=== PATIENT | male | born 1985 | race Caucasian/White ===

== ENCOUNTER 2018-05-11 11:23 | Emergency (ER) | payer SELFPAY ==
[~2018-05-11 11:23] MED LIST: CIPR500T4 PO; LEVO750T33 PO
[2018-05-11 11:25] VITALS: PULSE 79; RESP 20; TEMP 98.6; O2SAT 98
[2018-05-11 11:52] VITALS: O2SAT 97
--- NOTE | 2018-05-11 11:58 | PD ---
HPI Chief Complaint: General Weakness Time Seen by Provider: 11:35 Travel History International Travel<30 days: No Contact w/Intl Traveler<30days: No Traveled to known affect area: No History of Present Illness HPI 33-year-old male complains of pain and weakness anterior neck area, bilateral upper extremity. Patient states that symptoms started 2 days ago. Patient started having congestion 3 days ago. She states her congestion got better. Patient started having muscle pain tightness and weakness on the anterior neck area and bilateral upper extremity. Patient states that pain is worse with exertion. Patient states that he took ibuprofen and muscle relaxant yesterday without much relief. Patient states that he has been drinking a lot of water. Patient states that he was playing musical instrument out in the sun 3 days ago. Patient denies any headache. Patient denies any coughing. Patient denies any chest pain shortness of breath. Patient denies abdominal pain. Patient denies any nausea vomiting diarrhea. Patient is not on any routine medication. Patient denies any history of alcohol or drug abuse. On a scale of 1-10 the pain is a 5. PFSH Past Medical History Cardiovascular Problems: Yes ([facility]) Diminished Hearing: No Social History Alcohol Use: Yes ([facility]) Tobacco Use: Yes (1-2 PACKS/WEEK, NONE IN PAST 3 DAYS) Substance Use: No Allergies-Medications (Allergen,Severity, Reaction): Coded Allergies: amoxicillin (Verified Allergy, Intermediate, rash, 05/11/18) Reported Meds & Prescriptions Reported Meds & Active Scripts Active No Active Prescriptions or Reported Medications Review of Systems General / Constitutional: No: Fever Eyes: No: Visual changes HENT: No: Headaches Cardiovascular: No: Chest Pain or Discomfort Respiratory: No: Shortness of Breath Gastrointestinal: No: Abdominal Pain Genitourinary: No: Dysuria Musculoskeletal: Positive: Weakness, No: Pain Skin: No Rash Neurologic: No: Weakness Psychiatric: No: Depression Endocrine: No: Polydipsia Hematologic/Lymphatic: No: Easy Bruising Physical Exam Narrative GENERAL: Well-nourished, well-developed patient. SKIN: Focused skin assessment warm/dry. HEAD: Normocephalic. EYES: No scleral icterus. No injection or drainage. NECK: Supple, trachea midline. No JVD or lymphadenopathy. Mild tenderness on palpation anterior neck area. Trachea midline. No obvious mass noted. No lymphadenopathy. CARDIOVASCULAR: Regular rate and rhythm without murmurs, gallops, or rubs. RESPIRATORY: Breath sounds equal bilaterally. No accessory muscle use. GASTROINTESTINAL: Abdomen soft, non-tender, nondistended. MUSCULOSKELETAL: Patient has moderate diffuse tenderness over the bilateral upper extremities. Full range of motion upper extremity. 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 Patient states that the pain is aggravated by pain group and resistant movement of the upper extremity. Sensory function intact. No redness no heat noted. BACK: Nontender without obvious deformity. No CVA tenderness. Neurologic exam normal. Data Data Last Documented VS Vital Signs Date Time Temp Pulse Resp B/P (MAP) Pulse Ox O2 Delivery O2 Flow Rate FiO2 05/11/18 11:52 81 16 97 05/11/18 11:25 98.6 Orders Orders Electrocardiogram (05/11/18 11:41) Complete Blood Count With Diff (05/11/18 11:41) Comprehensive Metabolic Panel (05/11/18 11:41) Creatine Kinase (Cpk) (05/11/18 11:41) Urinalysis - C+S If Indicated (05/11/18 11:41) Chest, Single Ap (05/11/18 11:41) Iv Access Insert/Monitor (05/11/18 11:41) Ecg Monitoring (05/11/18 11:41) Oximetry (05/11/18 11:41) Drug Screen, Random Urine (05/11/18 11:41) Troponin I (05/11/18 11:41) Mri C Spine W/O Contrast (05/11/18 11:41) Thyroid Stimulating Hormone (05/11/18 11:41) Sodium Chlor 0.9% 1000 Ml Inj (Ns 1000 M (05/11/18 12:00) CKMB (05/11/18 12:10) CKMB% (05/11/18 12:10) Sodium Chlor 0.9% 1000 Ml Inj (Ns 1000 M (05/11/18 13:45) Labs Laboratory Tests Test 05/11/18 12:10 05/11/18 13:41 White Blood Count 5.9 TH/MM3 Red Blood Count 5.02 MIL/MM3 Hemoglobin 14.5 GM/DL Hematocrit 42.4 % Mean Corpuscular Volume 84.5 FL Mean Corpuscular Hemoglobin 28.9 PG Mean Corpuscular Hemoglobin Concent 34.2 % Red Cell Distribution Width 12.2 % Platelet Count 239 TH/MM3 Mean Platelet Volume 6.9 FL Neutrophils (%) (Auto) 60.3 % Lymphocytes (%) (Auto) 27.3 % Monocytes (%) (Auto) 6.6 % Eosinophils (%) (Auto) 4.4 % Basophils (%) (Auto) 1.4 % Neutrophils # (Auto) 3.5 TH/MM3 Lymphocytes # (Auto) 1.6 TH/MM3 Monocytes # (Auto) 0.4 TH/MM3 Eosinophils # (Auto) 0.3 TH/MM3 Basophils # (Auto) 0.1 TH/MM3 CBC Comment DIFF FINAL Differential Comment Blood Urea Nitrogen 12 MG/DL Creatinine 0.73 MG/DL Random Glucose 84 MG/DL Total Protein 7.1 GM/DL Albumin 3.7 GM/DL Calcium Level 8.3 MG/DL Alkaline Phosphatase 95 U/L Aspartate Amino Transf (AST/SGOT) 37 U/L Alanine Aminotransferase (ALT/SGPT) 43 U/L Total Bilirubin 0.5 MG/DL Sodium Level 141 MEQ/L Potassium Level 4.2 MEQ/L Chloride Level 107 MEQ/L Carbon Dioxide Level 25.0 MEQ/L Anion Gap 9 MEQ/L Estimat Glomerular Filtration Rate 125 ML/MIN Total Creatine Kinase 869 U/L Creatine Kinase MB 6.5 NG/ML Creatine Kinase MB % 0.7 % Troponin I LESS THAN 0.02 NG/ML Thyroid Stimulating Hormone 3rd Gen 1.360 uIU/ML Urine Color YELLOW Urine Turbidity CLEAR Urine pH 6.0 Urine Specific [place] 1.025 Urine Protein NEG mg/dL Urine Glucose (UA) NEG mg/dL Urine Ketones NEG mg/dL Urine Occult Blood NEG Urine Nitrite NEG Urine Bilirubin NEG Urine Urobilinogen 1.0 MG/DL Urine Leukocyte Esterase NEG Urine RBC 0-3 /hpf Urine WBC 3-5 /hpf Urine Squamous Epithelial Cells 0-5 /hpf Microscopic Urinalysis Comment CULT NOT INDICATED Urine Amphetamines Screen NEG MDM Medical Decision Making Medical Screen Exam Complete: Yes Emergency Medical Condition: Yes Interpretation(s) 14 11 PM. CBC within normal limits. CMP within normal limits. Total CK 869. MB fraction normal. Troponin normal. UA is negative. Differential Diagnosis Differential diagnosis including rhabdomyolysis, muscle spasm, cervical spinal cord injury. Narrative Course 33-year-old male with pain and weakness lower extremity and anterior neck area. pharmacy picking technician advised me the patient cannot be fitted for MRI machine at [place]. Normal saline solution 2 L IV bolus. Diagnosis Primary Impression: Rhabdomyolysis Qualified Codes: M62.82 - Rhabdomyolysis Patient Instructions: General Instructions Additional Instructions: Tylenol as needed for aching pain. Advised p.o. fluid. Follow-up with personal physician. Return if persistent problem or worse. Advised patient to go to the main ED for MRI cervical spine symptoms persist or worse. Med/Other Pt SpecificInfo: No Meds Exist/No RX given Scripts No Active Prescriptions or Reported Meds Disposition: 01 DISCHARGE HOME Condition: Stable Billy Landry MD May 11, 2018 11:58
[2018-05-11] MEDS ORDERED: SODIUM CHLOR 0.9% 1000 ML INJ 1,000 ML IV ONE (12:00)
[2018-05-11 12:24] LABS: AUTOMATED NEUTROPHIL # 3.5 TH/MM3 (1.8-7.7); BASOPHIL # 0.1 TH/MM3 (0-0.2); BASOPHIL % 1.4 % (0.0-2.0); EOSINOPHIL # 0.3 TH/MM3 (0-0.4); EOSINOPHIL % 4.4 % (0.0-4.0); HEMATOCRIT 42.4 % (39.0-51.0); HEMOGLOBIN 14.5 GM/DL (13.0-17.0); LYMPH % 27.3 % (9.0-44.0); LYMPHOCYTE # 1.6 TH/MM3 (1.0-4.8); MEAN CELL VOLUME 84.5 FL (80.0-100.0); MEAN CORPUSCULAR HEMOGLOBIN 28.9 PG (27.0-34.0); MEAN CORPUSCULAR HGB CONC 34.2 % (32.0-36.0); MEAN PLATELET VOLUME 6.9 FL (7.0-11.0); MONO % 6.6 % (0.0-8.0); MONOCYTE # 0.4 TH/MM3 (0-0.9); NEUT % 60.3 % (16.0-70.0); PLATELET COUNT 239 TH/MM3 (150-450); RED BLOOD COUNT 5.02 MIL/MM3 (4.50-5.90); RED CELL DISTRIBUTION WIDTH 12.2 % (11.6-17.2); WHITE BLOOD COUNT 5.9 TH/MM3 (4.0-11.0)
[2018-05-11 12:34] LABS: CHLORIDE 107 MEQ/L (98-107); SODIUM (NA) 141 MEQ/L (136-145)
[2018-05-11 12:38] LABS: CALCIUM 8.3 MG/DL (8.5-10.1)
[2018-05-11 12:39] LABS: ALBUMIN 3.7 GM/DL (3.4-5.0); BLOOD UREA NITROGEN 12 MG/DL (7-18); GLUCOSE,RANDOM 84 MG/DL (74-106)
--- NOTE | 2018-05-11 12:40 | RADRPT ---
EXAM DATE: 05/11/2018 12:32 PM EDT AGE/SEX: 33 years / Male INDICATIONS: Weakness and short of breath CLINICAL DATA: This is the patient's initial encounter. Patient reports that signs and symptoms have been present for 3 days and indicates a pain score of 0/10. MEDICAL/SURGICAL HISTORY: None. None. COMPARISON: [facility], CHEST SINGLE AP, 01/11/2016. . FINDINGS: A single AP view of the chest demonstrates the lungs to be symmetrically aerated without evidence of mass, infiltrate or effusion. The cardiomediastinal contours are unremarkable. Osseous structures a re intact. CONCLUSION: No acute cardiopulmonary disease Electronically signed by: Linwood Wick MD 05/11/2018 12:39 PM EDT
[2018-05-11 12:42] LABS: ALT (GPT) 43 U/L (12-78); AST (GOT) 37 U/L (15-37); CREATININE 0.73 MG/DL (0.60-1.30); GLOMERULAR FILTRATION RATE 125 ML/MIN (>89)
[2018-05-11 12:43] LABS: TOTAL BILIRUBIN ADULT 0.5 MG/DL (0.2-1.0); TOTAL PROTEIN 7.1 GM/DL (6.4-8.2)
[2018-05-11 12:44] LABS: ALKALINE PHOSPHATASE 95 U/L (45-117)
[2018-05-11 12:47] LABS: TROPONIN I LESS THAN 0.02 NG/ML (0.02-0.05)
[2018-05-11] MEDS ORDERED: SODIUM CHLOR 0.9% 1000 ML INJ 1,000 ML IV SCH (13:45)
[2018-05-11 13:47] LABS: BILIRUBIN, URINE NEG (NEG); BLOOD, URINE NEG (NEG); GLUCOSE,URINE NEG (NEG); KETONE, URINE NEG (NEG); NITRITE,URINE NEG (NEG); URINE COLOR YELLOW (YELLW/STRAW); URINE LEUKOCYTE ESTERASE NEG (NEG)
[2018-05-11 13:52] LABS: RBC, URINE 0-3 /hpf (0-3); SQUAMOUS EPITHELIAL CELL URINE 0-5 /hpf (0-5)
[2018-05-11 14:22] VITALS: BP 162/83; PULSE 77; RESP 18; O2SAT 98
--- NOTE | 2018-05-12 12:58 | EKG ---
Date Performed: 05/11/2018 Time Performed: 11:54:27 PTAGE: 33 years EKG: Sinus rhythm NORMAL ECG PREVIOUS TRACING : 06/03/2016 00.18 Since the previous tracing, no significant change noted DOCTOR: Marques Smiley Interpretating Date/Time 05/12/2018 12:54:26
== END 2018-05-11 14:47 | disposition home or self-care (01) ==
LOC: PHED 11:23
DX: M62.82 Rhabdomyolysis (principal); M54.2 Cervicalgia; M79.602 Pain in left arm; M79.601 Pain in right arm; F17.200 Nicotine dependence, unspecified, uncomplicated
CPT/HCPCS: 71045; 80053; 80307; 81001; 82550; 82552; 84443; 84484; 85025; 93005; 96360; 96361; 99285; J7030